=== PATIENT | male | born 1990 | race Hispanic/Latino ===

== ENCOUNTER 2021-04-12 14:42 | Emergency (ER) | payer SELFPAY ==
[2021-04-12] MEDS ORDERED: PROPOFOL 20 ML ONE ×2 (16:17→17:39)
[2021-04-12] MEDS ORDERED: Fentanyl 100 MCG/2 ML VIAL ONE (16:17)
== END 2021-04-12 19:00 | disposition home or self-care (01) ==
LOC: ERS 14:42
DX: S52.615A Nondisplaced fracture of left ulna styloid process, initial encounter for closed fracture (principal); S52.502A Unspecified fracture of the lower end of left radius, initial encounter for closed fracture; W20.8XXA Other cause of strike by thrown, projected or falling object, initial encounter; Y92.89 Other specified places as the place of occurrence of the external cause; Y99.0 Civilian activity done for income or pay
CPT/HCPCS: 25605; 96374; 99156; 99157; J2704; J3010